=== PATIENT | female | born 1975 | race Caucasian/White ===

== ENCOUNTER 2020-12-24 21:34 | Emergency (ER) | payer BC ==
[2020-12-24] MEDS ORDERED: DELTASONE 20 MG PO ONE (22:42)
[2020-12-24] MEDS ORDERED: DUONEB 0.5-3 MG/3 ml Neb IH ONE ×2 (22:42→22:48)
--- NOTE | 2020-12-24 22:42 | ERPHSYRPT ---
- History of Present Illness Time Seen by Provider: 12/24/20 22:38 Source: patient, family Exam Limitations: no limitations Physician History: pt has completed chemo for breast cancer several months ago but keeps having sinus infections and asthma flares; no fever , but some coughing. Timing/Duration: today Cough Quality/Degree: moderate Possible Cause: frequent episodes, chronic episodes Modifying Factors: Improves With: albuterol inhaler, coughing Associated Symptoms: cough, nasal congestion Allergies/Adverse Reactions: No Known Drug Allergies Allergy (Unverified 12/24/20 22:24) Home Medications: Gabapentin 300 mg [Neurontin 300 mg] 900 mg PO HS 12/24/20 [History] - Review of Systems Constitutional: No Fever, No Chills Eyes: No Symptoms Ears, Nose, & Throat: Nose Congestion, Nose Discharge, Sinus Drainage Respiratory: Cough, Wheezing, No Dyspnea Cardiac: No Chest Pain, No Edema, No Syncope Abdominal/Gastrointestinal: No Abdominal Pain, No Nausea, No Vomiting, No Diarrhea Genitourinary Symptoms: No Dysuria Musculoskeletal: No Back Pain, No Neck Pain Skin: No Rash Neurological: No Dizziness, No Focal Weakness, No Sensory Changes Psychological: No Symptoms Endocrine: No Symptoms All Other Systems: Reviewed and Negative - Past Medical History Pertinent Past Medical History: Yes Respiratory History: Asthma, COPD - Nursing Vital Signs Nursing Vital Signs: Initial Vital Signs Temperature 97.9 F 12/24/20 22:27 Pulse Rate 100 H 12/24/20 22:27 Respiratory Rate 18 12/24/20 22:27 Blood Pressure 128/82 12/24/20 22:27 O2 Sat by Pulse Oximetry 96 12/24/20 22:27 Pain Scale Pain Intensity 4 - Physical Exam General Appearance: no apparent distress, alert Eye Exam: PERRL/EOMI, eyes nml inspection Ears, Nose, Throat Exam: normal ENT inspection, TMs normal, pharynx normal, moist mucous membranes Neck Exam: normal inspection, non-tender, supple, full range of motion Respiratory Exam: airway intact, wheezing, No respiratory distress Cardiovascular Exam: regular rate/rhythm, normal heart sounds Gastrointestinal/Abdomen Exam: soft, No tenderness Back Exam: normal inspection, No CVA tenderness, No vertebral tenderness Extremity Exam: normal inspection, normal range of motion Neurologic Exam: alert, oriented x 3, cooperative, normal mood/affect, sensation nml, No motor deficits Skin Exam: normal color, warm, dry, No rash Lymphatic Exam: No adenopathy SpO2 Interpretation: normal SpO2: 96 O2 Delivery: Room Air - Course Nursing assessment & vital signs reviewed: Yes - Radiology Exams Chest X-ray Interpretation: Reviewed by me, Infiltrates (LLL) Ordered Tests: Active Orders 24 hr Category Date Time Status Pulse Oximetry (ED) STAT Care 12/24/20 22:42 Active CHEST 2 VIEWS (PA AND LAT) Stat Exams 12/25/20 00:33 Taken CBC W DIFF Stat Lab 12/24/20 23:18 Completed Respiratory Therapy Assessment DAILY RT 12/24/20 22:54 Active Medication Summary Discontinued Medications Generic Name Dose Route Start Last Admin Trade Name Freq PRN Reason Stop Dose Admin Albuterol/Ipratropium 3 ml 12/24/20 22:42 12/24/20 22:51 Duoneb 0.5-3 Mg/3 Ml Neb IH 12/24/20 22:43 3 ml STAT ONE Administration Albuterol/Ipratropium Confirm 12/24/20 22:48 Duoneb 0.5-3 Mg/3 Ml Neb Administered 12/24/20 22:49 Dose 3 ml IH .STK-MED ONE Azithromycin 500 mg 12/24/20 22:43 12/24/20 22:55 Zithromax 250 Mg Tablet PO 12/24/20 22:44 500 mg STAT ONE Administration Azithromycin Confirm 12/24/20 22:53 Zithromax 250 Mg Tablet Administered 12/24/20 22:54 Dose 500 mg .ROUTE .[facility] ONE Prednisone 60 mg 12/24/20 22:42 12/24/20 22:56 Deltasone 20 Mg PO 12/24/20 22:43 60 mg STAT ONE Administration Prednisone Confirm 12/24/20 22:53 Deltasone 20 Mg Administered 12/24/20 22:54 Dose 60 mg .ROUTE .[facility]-MED ONE Lab/Rad Data: Laboratory Result Diagrams 12/24/20 23:18 Laboratory Results 12/25/20 12/24/20 Range/Units 01:08 23:18 WBC 10.7 H (4.0-10.5) K/mm3 RBC 4.92 (4.1-5.4) M/mm3 Hgb 13.0 (12.0-16.0) gm/dl Hct 41.3 (35-47) % MCV 83.9 (78-100) fl MCH 26.4 (26-32) pg MCHC 31.5 L (32-36) g/dl RDW 16.1 H (11.5-14.0) % Plt Count 265 (150-450) K/mm3 MPV 10.7 (7.5-11.0) fl Gran % 69.4 H (36.0-66.0) % Eos # (Auto) 0.12 (0-0.5) Absolute Lymphs (auto) 2.35 (1.0-4.6) Absolute Monos (auto) 0.79 (0.0-1.3) Lymphocytes % 22.0 L (24.0-44.0) % Monocytes % 7.4 (0.0-12.0) % Eosinophils % 1.1 (0.00-5.0) % Basophils % 0.1 (0.0-0.4) % Absolute Granulocytes 7.40 H (1.4-6.9) Basophils # 0.01 (0-0.4) SARS-CoV-2 (PCR) NEGATIVE (NEGATIVE) - Progress Progress: improved, re-examined Air Movement: good Progress Note: 12/25/20 02:43 pt was delayed to get covid test - which was negative , and by that time her pulse ox was 95% on RA. We offered her admission out of concern that a few times the pulse ox had seemed to drop and explained she might have increased risk for complications such as a PE - she understands but reiterates that she has not been short of breath and wishes to decline further testing for ddimer or PE CT or cardiovascular or other evolving but yet undetected conditions- she and voice their understanding but wish to decline workup further in ER or hosp and f/u with PCP outpt, and they have the capacity to make that choice. 12/25/20 02:55 Blood Culture(s) Obtained: No Antibiotics given: Yes Counseled pt/family regarding: diagnosis, need for follow-up - Departure Departure Disposition: Home Clinical Impression: exacerbation COPD Condition: Good Critical Care Time: No Referrals: CANDELARIO DE LA VEGA [Primary Care Provider] - Instructions: Exacerbation of COPD (DC) Additional Instructions: followup with your Dr this week for progress and to consider further additional testing if indicated - this is important since there could be conditions evolving that we have not yet tested for or are not detected yet. return meantime if short of breath or other concerns Prescriptions: Methylprednisolone Packet [Medrol Dosepack] 4 mg PO UD #30 packet Azithromycin 250 mg [Zithromax 250 MG TABLET] 250 mg PO ZPACK #6 tablet
[2020-12-24] MEDS ORDERED: Zithromax 250 MG TABLET PO ONE (22:43)
[2020-12-24] MEDS ORDERED: DELTASONE 20 MG ONE (22:53)
[2020-12-24] MEDS ORDERED: Zithromax 250 MG TABLET ONE (22:53)
[2020-12-24 23:21] LABS: BASOPHIL % 0.1 % (0.0-0.4); Basophil (Absolute #) 0.01 (0-0.4); Eosinophil % 1.1 % (0.00-5.0); Eosinophil (Absolute #) 0.12 (0-0.5); Hematocrit 41.3 % (35-47); Lymphocyte (Absolute #) 2.35 (1.0-4.6); Mean Cell Volume 83.9 fl (78-100); Mean Corpuscular Hemoglobin 26.4 pg (26-32); Mean Corpuscular Hgb Concent. 31.5 g/dl (32-36); Mean Platelet Volume 10.7 fl (7.5-11.0); Monocyte (Absolute #) 0.79 (0.0-1.3); Monocytes % 7.4 % (0.0-12.0); Neutrophil % 69.4 % (36.0-66.0); Platelet Count 265 K/mm3 (150-450); Red Blood Count 4.92 M/mm3 (4.1-5.4); Red Cell Distribution Width 16.1 % (11.5-14.0); White Blood Count 10.7 K/mm3 (4.0-10.5)
[2020-12-25 02:11] VITALS: BP 110/81; PULSE 99
[2020-12-25 02:58] VITALS: O2SAT 96
--- NOTE | 2020-12-25 08:59 | XRAY ---
Indication: Short of breath. Comparison: January 19, 2020. PA/lateral chest again demonstrates normal heart and lungs. Bony thorax intact with interval bilateral mastectomy.
== END 2020-12-25 02:35 | disposition home or self-care (01) ==
LOC: ED 21:34
DX: J44.1 Chronic obstructive pulmonary disease with (acute) exacerbation (principal); Z85.3 Personal history of malignant neoplasm of breast; Z79.899 Other long term (current) drug therapy; Z20.828 Contact with and (suspected) exposure to other viral communicable diseases
CPT/HCPCS: 36415; 71046; 85025; 94640; 94760; 99284; U0003; A9270-GY

== ENCOUNTER 2021-02-13 07:11 | Emergency (ER) | payer BC ==
[2021-02-13] MEDS ORDERED: Sodium Chloride 0.9% 1000 ML 1,000 ML IV STA (07:33)
[2021-02-13] MEDS ORDERED: Sodium Chloride 0.9% 1000 ML 1,000 ML ONE (07:41)
--- NOTE | 2021-02-13 07:45 | ERPHSYRPT ---
- History of Present Illness Time Seen by Provider: 02/13/21 07:30 Source: patient Patient Subjective Stated Complaint: cough, CUEVAS, ear aches, aching body x 2 days. vomiting and diarrhea x 1 day Triage Nursing Assessment: pt to ED c/o cough, CUEVAS, ear aches, aching body x 2 d ays and vomiting and diarrhea x 1 day. also states no taste/smell. pt rates pain 7/10 aching, throbbing, pressure. one episode emesis and one episode diarrhea so far. afebrile. 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 Physician History: Patient is a 45-year-old female presents to emergency department with multiple complaints. Patient complains of dry cough headache ear pressure generalized body aches nausea vomiting and diarrhea. Symptoms started approximately 2 days ago. Patient states her nausea and vomiting started yesterday. Symptoms have been constant. Patient adds that she has lost taste and smell. Patient's myalgias are rated 7 out of 10. Patient states that she has been exposed to many people for her occupation. COVID-19 is a concern. Patient has not been vaccinated. Symptoms are constant. Symptoms are moderate in intensity. No specific worsening or improving factors. Patient states she is otherwise genera lly healthy. She voices no other complaints concerns at this time. Timing/Duration: day(s) (2 days ago) Severity: moderate Modifying Factors: Improves With: acetaminophen Associated Symptoms: nausea, vomiting, weakness (Generalized weakness.), No seizure Allergies/Adverse Reactions: No Known Drug Allergies Allergy (Unverified 12/24/20 22:24) Home Medications: Gabapentin 300 mg [Neurontin 300 mg] 900 mg PO HS 12/24/20 [History] Hx Tetanus, Diphtheria Vaccination/Date Given: Yes Hx Influenza Vaccination/Date Given: Yes Hx Pneumococcal Vaccination/Date Given: Yes Immunizations Up to Date: Yes Travel Risk - International Travel Have you traveled outside of the country in past 3 weeks: No - Coronavirus Screening Are you exhibiting any of the following symptoms?: Yes Symptoms: Cough: New Onset, Vomiting/Diarrhea, Loss of Taste or Smell, Headaches/Body Aches/Fatigue Close contact with a COVID-19 positive Pt in past 14-21 Days: No - Vaccine Status Have you recieved a Covid-19 vaccination: No - Review of Systems Constitutional: No Symptoms, No Fever, No Chills Eyes: No Symptoms Ears, Nose, & Throat: No Symptoms Respiratory: No Symptoms, No Cough, No Dyspnea Cardiac: No Symptoms, No Chest Pain, No Edema, No Syncope Abdominal/Gastrointestinal: No Symptoms, No Abdominal Pain, No Nausea, No Vomiting, No Diarrhea Genitourinary Symptoms: No Symptoms, No Dysuria Musculoskeletal: No Symptoms, No Back Pain, No Neck Pain Skin: No Symptoms, No Rash Neurological: No Symptoms, No Dizziness, No Focal Weakness, No Sensory Changes Psychological: No Symptoms Endocrine: No Symptoms Hematologic/Lymphatic: No Symptoms Immunological/Allergic: No Symptoms All Other Systems: Reviewed and Negative - Past Medical History Pertinent Past Medical History: Yes Respiratory History: Asthma, COPD Female Reproductive Disorders: Breast Cancer - Past Surgical History Past Surgical History: Yes Female Surgical History: Hysterectomy, Mastectomy Other Surgical History: bilat mastectomy, port placement and removal - Social History Smoking Status: Current every day smoker How long have you smoked: 20yrs Exposure to second hand smoke: No Drug Use: none Patient Lives Alone: No - Female History Hx Now: No - Nursing Vital Signs Nursing Vital Signs: Initial Vital Signs Temperature 98.6 F 02/13/21 07:19 Pulse Rate 108 H 02/13/21 07:19 Respiratory Rate 18 02/13/21 07:19 Blood Pressure 128/92 02/13/21 07:19 O2 Sat by Pulse Oximetry 95 02/13/21 07:19 Pain Scale Pain Intensity 4 - Physical Exam General Appearance: no apparent distress, alert Eye Exam: PERRL/EOMI, eyes nml inspection Ears, Nose, Throat Exam: normal ENT inspection, TMs normal, pharynx normal, moist mucous membranes Neck Exam: normal inspection, non-tender, supple, full range of motion Respiratory Exam: normal breath sounds, lungs clear, airway intact, No respiratory distress Cardiovascular Exam: regular rate/rhythm, normal heart sounds, normal peripheral pulses Gastrointestinal/Abdomen Exam: soft, normal bowel sounds, No tenderness, No mass Back Exam: normal inspection, normal range of motion, No CVA tenderness, No vertebral tenderness Extremity Exam: normal inspection, normal range of motion, pelvis stable Neurologic Exam: alert, oriented x 3, cooperative, normal mood/affect, nml cerebellar function, nml station & gait, sensation nml, No motor deficits Skin Exam: normal color, warm, dry, No rash Lymphatic Exam: No adenopathy SpO2 Interpretation: normal SpO2: 95 O2 Delivery: Room Air - Course Nursing assessment & vital signs reviewed: Yes Ordered Tests: Active Orders 24 hr Category Date Time Status IV Insertion STAT Care 02/13/21 07:33 Active CBC W DIFF Stat Lab 02/13/21 07:25 Completed CMP Stat Lab 02/13/21 07:25 Completed UA W/RFX UR CULTURE Stat Lab 02/13/21 07:35 Ordered Medication Summary Discontinued Medications Generic Name Dose Route Start Last Admin Trade Name Byron PRN Reason Stop Dose Admin Sodium Chloride 1,000 mls @ 999 mls/hr 02/13/21 07:33 02/13/21 08:45 Sodium Chloride 0.9% 1000 Ml IV 02/13/21 08:33 Infused .Q1H1M STA Infusion Sodium Chloride Confirm 02/13/21 07:41 Sodium Chloride 0.9% 1000 Ml Administered 02/13/21 07:42 Dose 1,000 mls @ ud .ROUTE .[facility] Lab/Rad Data: Laboratory Result Diagrams 02/13/21 07:25 02/13/21 07:25 Laboratory Results 02/13/21 02/13/21 Range/Units 07:25 07:25 WBC 3.4 L (4.0-10.5) K/mm3 RBC 5.63 H (4.1-5.4) M/mm3 Hgb 15.6 (12.0-16.0) gm/dl Hct 46.7 (35-47) % MCV 82.9 (78-100) fl MCH 27.7 (26-32) pg MCHC 33.4 (32-36) g/dl RDW 19.1 H (11.5-14.0) % Plt Count 227 (150-450) K/mm3 MPV 10.4 (7.5-11.0) fl Gran % 39.6 (36.0-66.0) % Eos # (Auto) 0 (0-0.5) Absolute Lymphs (auto) 1.56 (1.0-4.6) Absolute Monos (auto) 0.49 (0.0-1.3) Lymphocytes % 45.7 H (24.0-44.0) % Monocytes % 14.4 H (0.0-12.0) % Eosinophils % 0.0 (0.00-5.0) % Basophils % 0.3 (0.0-0.4) % Absolute Granulocytes 1.35 L (1.4-6.9) Basophils # 0.01 (0-0.4) Sodium 136 L (137-145) mmol/L Potassium 3.8 (3.5-5.1) mmol/L Chloride 103 (98-107) mmol/L Carbon Dioxide 20 L (22-30) mmol/L Anion Gap 17.2 H (5-15) MEQ/L BUN 17 (7-17) mg/dL Creatinine 0.77 (0.52-1.04) mg/dL Estimated GFR > 60.0 ML/MIN Glucose 107 H (74-106) mg/dL Calcium 9.5 (8.4-10.2) mg/dL Total Bilirubin 0.30 (0.2-1.3) mg/dL AST 42 H (14-36) U/L ALT 39 H (0-35) U/L Alkaline Phosphatase 124 (38-126) U/L Serum Total Protein 7.7 (6.3-8.2) g/dL Albumin 4.6 (3.5-5.0) g/dL - Progress Progress: improved Progress Note: Patient reassessed. She feels much better. Patient presented with nausea vomiting diarrhea. Patient symptomology and work-up indicate a viral cause to her illness. Chest x-ray was not ordered. Patient has clear lung estrada. No r espiratory distress. Normal saturation. Clinically patient appeared dehydrated. Sodium was mildly decreased. Patient received a liter of normal saline. Patient has no urinary symptomology. No indication for urinalysis at this time. Will discharge home. Patient agrees to follow-up with her primary care doctor within 48 hours for reevaluation. Patient voiced no other complaints or concerns at this time. Will discharge home. Portions of this note were created with voice recognition technology. There may be grammatical, spelling, punctuation or sound alike errors 02/13/21 09:22 02/13/21 09:24 Counseled pt/family regarding: lab results, diagnosis, need for follow-up - Departure Departure Disposition: Home Clinical Impression: Viral syndrome, Nausea vomiting and diarrhea, Dehydration Condition: Stable Critical Care Time: No Referrals: CANDELARIO DE LA VEGA [Primary Care Provider] - Additional Instructions: Discharge/Care Plan RONDA GONSALEZ was seen on 02/13/21 in the Emergency Room. The patient was counseled regarding Diagnosis,Lab results, Imaging studies, need for follow up and when to return to the Emergency Room. Prescriptions given: Discharge Note I have spoken with the patient and/or caregivers. I have explained the patient's condition, diagnosis and treatment plan based on the information available to me at this time. I have answered the patient's and/or caregiver's questions and addressed any concerns. The patient and/or caregivers have as good understanding of the patient's diagnosis, condition and treatment plan as can be expected at this point. The vital signs have been stable. The patient's condition is stable and appropriate for discharge from the emergency department. The patient will pursue further outpatient evaluation with the primary care physician or other designated or consulting physician as outlined in the discharge instructions. The patient and/or caregivers are agreeable to this plan of care and follow-up instructions have been explained in detail. The patient and/or caregivers have received these instruction. The patient/and or caregivers are aware that any significant change in condition or worsening of symptoms should prompt an immediate return to this or the closest emergency department or call 911.
[2021-02-13 07:56] LABS: Absolute Neutrophil Ct (ANC) 1.35 (1.4-6.9); BASOPHIL % 0.3 % (0.0-0.4); Basophil (Absolute #) 0.01 (0-0.4); Eosinophil (Absolute #) 0 (0-0.5); Hematocrit 46.7 % (35-47); Hemoglobin 15.6 gm/dl (12.0-16.0); Lymphocyte (Absolute #) 1.56 (1.0-4.6); Lymphocytes % 45.7 % (24.0-44.0); Mean Cell Volume 82.9 fl (78-100); Mean Corpuscular Hemoglobin 27.7 pg (26-32); Mean Corpuscular Hgb Concent. 33.4 g/dl (32-36); Mean Platelet Volume 10.4 fl (7.5-11.0); Monocyte (Absolute #) 0.49 (0.0-1.3); Monocytes % 14.4 % (0.0-12.0); Neutrophil % 39.6 % (36.0-66.0); Platelet Count 227 K/mm3 (150-450); Red Blood Count 5.63 M/mm3 (4.1-5.4); Red Cell Distribution Width 19.1 % (11.5-14.0); White Blood Count 3.4 K/mm3 (4.0-10.5)
[2021-02-13 08:05] LABS: ALBUMIN 4.6 g/dL (3.5-5.0); ALKALINE PHOSPHATASE 124 U/L (38-126); ANION GAP 17.2 MEQ/L (5-15); BLOOD UREA NITROGEN 17 mg/dL (7-17); CHLORIDE 103 mmol/L (98-107); Calcium 9.5 mg/dL (8.4-10.2); Carbon Dioxide 20 mmol/L (22-30); Creatinine 1 0.77 mg/dL (0.52-1.04); EST GLOMERULAR FILTRATION RATE > 60.0 ML/MIN; Glucose 107 mg/dL (74-106); Potassium 3.8 mmol/L (3.5-5.1); SGOT/AST 42 U/L (14-36); SGPT/ALT 39 U/L (0-35); SODIUM 136 mmol/L (137-145); Total Protein 7.7 g/dL (6.3-8.2)
[2021-02-13 09:06] VITALS: BP 128/89
[2021-02-13 09:47] VITALS: PULSE 91; O2SAT 93
== END 2021-02-13 09:56 | disposition home or self-care (01) ==
LOC: ED 07:11
DX: B34.9 Viral infection, unspecified (principal); R11.2 Nausea with vomiting, unspecified; R19.7 Diarrhea, unspecified; E86.0 Dehydration
CPT/HCPCS: 36000; 36415; 80053; 85025; 96360; 99284; U0003